=== PATIENT | female | born 1960 | race Caucasian/White ===

== ENCOUNTER 2018-08-25 16:18 | Emergency (ER) | payer SELFPAY ==
[~2018-08-25] VITALS: Ht 165.1 cm; Wt 57.6 kg
[~2018-08-25 16:18] MED LIST: CEPH500 PO; ESOM20; Percocet 5-3251 EACH PO; Zofran Odt4 MG SL
[2018-08-25] MEDS ORDERED: Norco 7.5-3251 EACH PO (17:25)
[2018-08-25] MEDS ORDERED: GABA300 PO (17:25)
== END 2018-08-25 19:05 | disposition home or self-care (01) ==
LOC: ER 16:18
DX: R60.0 Localized edema (principal); M79.661 Pain in right lower leg; Z88.2 Allergy status to sulfonamides; Z91.040 Latex allergy status; Z79.899 Other long term (current) drug therapy; F17.200 Nicotine dependence, unspecified, uncomplicated
CPT/HCPCS: 93971; 99283-25

== ENCOUNTER 2019-03-03 19:03 | Observation (INO) | payer OTHER ==
[~2019-03-03] VITALS: Ht 165.1 cm; Wt 55.2 kg
[~2019-03-03 19:03] MED LIST changes: +GABA300 PO; +Norco 7.5-3251 EACH PO
[2019-03-03 20:05] LABS: BASOPHILS ABSOLUTE AUTO 0.03 K/mm3 (0.00-0.23); BASOPHILS PERCENT AUTO 0 % (0-2); EOSINOPHILS ABSOLUTE AUTO 0.04 K/mm3 (0.00-0.68); EOSINOPHILS PERCENT AUTO 0 % (0-6); Hematocrit 41.6 % (33.0-51.0); Hemoglobin 13.6 g/dL (11.5-16.0); IMMATURE GRAN ABSOLUTE AUTO 0.03 K/mm3 (0.00-0.10); IMMATURE GRAN PERCENT AUTO 0 % (0-1); LYMPHOCYTES ABSOLUTE AUTO 1.92 K/mm3 (0.84-5.20); LYMPHOCYTES PERCENT AUTO 19 % (21-46); MONOCYTES ABSOLUTE AUTO 0.51 K/mm3 (0.16-1.47); MONOCYTES PERCENT AUTO 5 % (4-13); Mean Corpuscular HGB 32.1 pg (26.0-34.0); Mean Corpuscular HGB Conc 32.7 g/dL (31.5-36.5); Mean Corpuscular Volume 98 fL (80-100); Mean Platelet Volume 10.1 fL (9.1-12.4); NEUTROPHILS ABSOLUTE AUTO 7.61 K/mm3 (1.96-9.15); NEUTROPHILS PERCENT AUTO 75 % (41-73); Platelet Count 202 K/mm3 (150-400); RDW Coefficient Variation 13.3 % (11.7-14.2); Red Blood Cell Count 4.24 M/mm3 (3.80-5.20); White Blood Cell Count 10.14 K/mm3 (4.00-11.30)
[2019-03-03 20:31] LABS: Alanine Aminotransfer (ALT/SGP 14 U/L (12-78); Albumin, Blood 3.9 g/dL (3.4-5.0); Albumin/Globulin Ratio 0.9 (0.8-1.8); Alk Phos 97 U/L (50-136); Anion Gap 8 mmol/L (6-16); Aspartate Aminotrans (AST/SGOT 12 U/L (12-37); Bilirubin, Total 0.7 mg/dL (0.1-1.0); Blood Urea Nitrogen 8 mg/dL (8-24); Bun/Creatinine Ratio 12.6 (12.0-20.0); CO2, Blood 24 mmol/L (21-32); Calcium, Blood 9.1 mg/dL (8.5-10.1); Chloride, Blood 103 mmol/L (98-108); Creatinine, Blood 0.63 mg/dL (0.40-1.00); Globulin, Blood 4.2 g/dL (2.2-4.0); Glomerular Filtration Rate >60 (60-); Glucose, Blood 98 mg/dL (70-99); Potassium, Blood 3.8 mmol/L (3.5-5.5); Sodium, Blood 135 mmol/L (136-145); Total Protein, Blood 8.1 g/dL (6.4-8.2); Troponin I <0.015 ng/mL (0.000-0.040)
[2019-03-03 21:38] LABS: Source, Urine Voided
[2019-03-03 21:49] LABS: Bilirubin, Urine Neg (Neg); Blood, Urine Neg (Neg); Glucose Qualitative, Urine Neg (Neg); Ketones, Urine 1+ (Neg); Leukocyte Esterase, Urine 2+ (Neg); Nitrite, Urine Neg (Neg); Protein, Urine Neg (Neg); Urobilinogen, Urine NORM (Normal)
[2019-03-03 21:58] LABS: Appearance, Urine Clear (Clear); Color, Urine Yellow (P-Yellow)
[2019-03-03] MEDS ORDERED: Aspir 8181 MG PO (21:58)
[2019-03-03 21:59] LABS: Bacteria Mod /hpf; Red Blood Cells, Urine Not Seen /hpf (0-2); Squamous Epithelial Cells Few /hpf (Few)
[2019-03-04 04:34] LABS: Hematocrit 37.5 % (33.0-51.0); Hemoglobin 12.4 g/dL (11.5-16.0); Mean Corpuscular HGB 32.1 pg (26.0-34.0); Mean Corpuscular HGB Conc 33.1 g/dL (31.5-36.5); Mean Corpuscular Volume 97 fL (80-100); Mean Platelet Volume 9.9 fL (9.1-12.4); Platelet Count 188 K/mm3 (150-400); RDW Coefficient Variation 13.5 % (11.7-14.2); RDW Standard Deviation 48.2 fL (35.1-46.3); Red Blood Cell Count 3.86 M/mm3 (3.80-5.20); White Blood Cell Count 9.66 K/mm3 (4.00-11.30)
[2019-03-04 04:58] LABS: Alanine Aminotransfer (ALT/SGP 14 U/L (12-78); Albumin, Blood 3.5 g/dL (3.4-5.0); Albumin/Globulin Ratio 0.9 (0.8-1.8); Alk Phos 84 U/L (50-136); Anion Gap 7 mmol/L (6-16); Aspartate Aminotrans (AST/SGOT 8 U/L (12-37); Bilirubin, Total 0.5 mg/dL (0.1-1.0); Blood Urea Nitrogen 9 mg/dL (8-24); Bun/Creatinine Ratio 17.2 (12.0-20.0); CO2, Blood 23 mmol/L (21-32); Calcium, Blood 9.1 mg/dL (8.5-10.1); Chloride, Blood 107 mmol/L (98-108); Creatinine, Blood 0.52 mg/dL (0.40-1.00); Globulin, Blood 3.9 g/dL (2.2-4.0); Glomerular Filtration Rate >60 (60-); Glucose, Blood 103 mg/dL (70-99); Potassium, Blood 3.7 mmol/L (3.5-5.5); Sodium, Blood 137 mmol/L (136-145); Total Protein, Blood 7.4 g/dL (6.4-8.2)
[2019-03-04] MEDS ORDERED: XARELTO15 MG PO (13:11)
[2019-03-04] MEDS ORDERED: Cipro250 MG PO (13:12)
--- NOTE | 2019-03-04 13:38 | NUR ---
DISCHARGE PT PROVIDED WITH WRITTEN AND VERBAL DISCHARGE INSTRUCTIONS. PT EDUCATED TO RETURN TO THE HOSPITAL IF SHE HAS WORSENING SYMPTOMS. PRESCRIPTIONS CALLED TO THE PATIENTS PHARMACY, HARD SCRIPT PROVIDED FOR PAIN MEDICATION. PT REPORTED UNDERSTANDING INSTRUCTIONS.
== END 2019-03-04 13:36 | disposition home or self-care (01) ==
LOC: ER 19:03 → MEDS 19:04 → ER 03-04 02:32 → SURS 03-04 02:42
PROVIDERS: Emergency Medicine; Physician Assistant; ADMIT Internal Medicine
DX: R82.81 Pyuria (principal); I26.99 Other pulmonary embolism without acute cor pulmonale; I73.9 Peripheral vascular disease, unspecified; K21.9 Gastro-esophageal reflux disease without esophagitis; Z79.82 Long term (current) use of aspirin; Z79.899 Other long term (current) drug therapy
CPT/HCPCS: 36415; 71046; 71275; 80053; 81001; 81240; 81241; 83690; 84484; 85025; 85027; 85303; 85306; 85379; 93005; 93010; 96361; 96365-59; 96375; 96376; 99285-25; G0378; J0696; J3010; J7030; Q9967

== ENCOUNTER → 2020-01-25 | Outpatient (CLI) | payer OTHER ==
[~2020-01-25] MED LIST changes: +Aspir 8181 MG PO; +Cipro250 MG PO; +TRAM50 PO; +XARELTO15 MG PO
== END | disposition home or self-care (01) ==
LOC: LAB 10:00
DX: R10.9 Unspecified abdominal pain (principal)
CPT/HCPCS: 87086

== ENCOUNTER 2020-07-02 07:42 | Emergency (ER) | payer OTHER ==
[~2020-07-02] VITALS: Ht 167.6 cm; Wt 59.0 kg
[~2020-07-02 07:42] MED LIST changes: -TRAM50 PO
[2020-07-02] MEDS ORDERED: TRAM50 PO (08:11)
== END 2020-07-02 08:40 | disposition home or self-care (01) ==
LOC: ER 07:42
DX: S90.31XA Contusion of right foot, initial encounter (principal); K21.9 Gastro-esophageal reflux disease without esophagitis; F17.210 Nicotine dependence, cigarettes, uncomplicated; Z88.2 Allergy status to sulfonamides; Z79.82 Long term (current) use of aspirin; Z79.899 Other long term (current) drug therapy; Z79.01 Long term (current) use of anticoagulants; W20.8XXA Other cause of strike by thrown, projected or falling object, initial encounter
CPT/HCPCS: 73630; 99283-25

== ENCOUNTER → 2021-04-30 | Outpatient (CLI) | payer OTHER ==
[~2021-04-30] MED LIST changes: +Prednisone20 MG PO; +TRAM50 PO
== END ==
LOC: LAB SHORT 17:58
DX: R30.9 Painful micturition, unspecified (principal)
CPT/HCPCS: 87086

== ENCOUNTER 2021-05-03 00:23 | Emergency (ER) | payer OTHER ==
[~2021-05-03] VITALS: Ht 165.1 cm; Wt 59.9 kg
[~2021-05-03 00:23] MED LIST changes: -Prednisone20 MG PO
[2021-05-03] MEDS ORDERED: Prednisone20 MG PO (00:33)
== END 2021-05-03 00:38 | disposition home or self-care (01) ==
LOC: ER 00:23
DX: L50.0 Allergic urticaria (principal); K21.9 Gastro-esophageal reflux disease without esophagitis; Z88.2 Allergy status to sulfonamides; Z91.040 Latex allergy status
CPT/HCPCS: 99283; A9270; J7512